=== PATIENT | male | born 2005 | race Two or more races ===

== ENCOUNTER 2025-03-15 17:36 | Emergency (ER) | payer MEDICAID, OTHER ==
[~2025-03-15] VITALS: Ht 175.3 cm; Wt 99.8 kg
[2025-03-15] MEDS ORDERED: OXYCODONE/APAP 5-325 MG TABLET ONE (18:00)
[2025-03-15] MEDS: OXYCODONE/APAP 5-325 MG TABLET PO ONE (18:04)
[2025-03-15] MEDS ORDERED: OXYC-128 PO (18:36)
[2025-03-15 19:45] VITALS: BP 138/79
[2025-03-15] MEDS ORDERED: CYCL5TAB PO (21:32)
[2025-03-15] MEDS ORDERED: NAPR-1009 PO (21:32)
[2025-03-15] MEDS ORDERED: HYDROCODONE/APAP 5-325MG TABLET ONE (21:35)
[2025-03-15] MEDS ORDERED: KETOROLAC TROMETHAMINE 30 MG INJ ONE (21:35)
[2025-03-15] MEDS: KETOROLAC TROMETHAMINE 30 MG INJ IM ONE (21:44)
[2025-03-15] MEDS: HYDROCODONE/APAP 5-325MG TABLET PO ONE (21:44)
[2025-03-15 21:59] VITALS: BP 136/77; O2SAT 99
== END 2025-03-15 21:46 | disposition home or self-care (01) ==
LOC: ER 17:41
DX: S62.630A Displaced fracture of distal phalanx of right index finger, initial encounter for closed fracture (principal); S16.1XXA Strain of muscle, fascia and tendon at neck level, initial encounter; S20.219A Contusion of unspecified front wall of thorax, initial encounter; V89.2XXA Person injured in unspecified motor-vehicle accident, traffic, initial encounter; Y93.89 Activity, other specified; Y92.410 Unspecified street and highway as the place of occurrence of the external cause; Y99.8 Other external cause status
CPT/HCPCS: 29130; 71045; 72040; 73140; 96372; 99284; J1885; J7040; A4606; A4663